=== PATIENT | female | born 1980 | race Caucasian/White ===

== ENCOUNTER 2016-09-21 10:22 | Emergency (ER) | payer MEDICAID ==
[~2016-09-21] VITALS: Ht 170.2 cm; Wt 106.9 kg
[~2016-09-21 10:22] MED LIST: ACET325T14 PO; CEPH-368 PO; CLIN300C93 PO; DOCU-30 PO; FLUO40CA9 PO; IBUP-1222 PO; OXYC-302 PO
[2016-09-21 10:39] VITALS: BP 138/85
== END 2016-09-21 12:13 | disposition home or self-care (01) ==
LOC: ED 12:08
DX: M25.561 Pain in right knee (principal); Z88.0 Allergy status to penicillin
CPT/HCPCS: 29505

== ENCOUNTER → 2017-09-14 | Outpatient (CLI) | payer MEDICAID ==
[~2017-09-14] MED LIST changes: +CLIN300C8 PO; -CLIN300C93 PO; +DOCU-131 PO; -DOCU-30 PO; +OMNIPAQUE 350 MG/ML, 100ML BOTTLE ONE
== END | disposition home or self-care (01) ==
LOC: EDSTATUS 09-09 14:30 → CFH 07:57 → EDSTATUS 09:00
PROVIDERS: ATTEND Obstetrics & Gynecology
DX: K76.0 Fatty (change of) liver, not elsewhere classified (principal); N83.11 Corpus luteum cyst of right ovary; K43.9 Ventral hernia without obstruction or gangrene; Z87.39 Personal history of other diseases of the musculoskeletal system and connective tissue
CPT/HCPCS: 74177; Q9967